=== PATIENT | male | born 2005 | race Two or more races ===

== ENCOUNTER 2023-02-03 18:27 | Emergency (ER) | payer MEDICAID ==
[~2023-02-03] VITALS: Ht 172.7 cm; Wt 63.3 kg
[~2023-02-03 18:27] MED LIST: IBUP-2766 PO
[2023-02-03 18:30] VITALS: BP 162/81; PULSE 98; RESP 16; TEMP 99.2; O2SAT 98
[2023-02-03] MEDS ORDERED: ondansetron 4mg rapidly disintigrating tab PO ONE (18:35)
[2023-02-03] MEDS ORDERED: HYDROcodone/acetaminophen 10/325mg tab PO ONE (18:35)
[2023-02-03] MEDS ORDERED: ibuprofen tablet 400 MG TABLET PO ONE (18:35)
[2023-02-03] MEDS ORDERED: NAPR-56 PO (20:19)
== END 2023-02-03 20:38 | disposition home or self-care (01) ==
LOC: ER 18:28
DX: S63.501A Unspecified sprain of right wrist, initial encounter (principal); Z79.899 Other long term (current) drug therapy; W19.XXXA Unspecified fall, initial encounter; Y93.89 Activity, other specified; Y92.89 Other specified places as the place of occurrence of the external cause; Y99.8 Other external cause status
CPT/HCPCS: 73110; 99284